=== PATIENT | female | born 1990 | race African-American/Black ===

== ENCOUNTER 2023-03-22 18:05 | Inpatient (IN) | payer OTHER ==
[2023-03-22 18:44] VITALS: BMI 25.8
[2023-03-22 18:54] LABS: BASO % 0.3 % (0-2.0); EOS % 0.3 % (0-4.5); HEMATOCRIT 35.7 % (32.4-45.2); LYMPH % 19.3 % (8-40); MCH 30.6 pg (25.7-33.7); MCHC 33.7 g/dl (32.0-36.0); MEAN CELL VOLUME 90.7 fl (80-96); MEAN PLT VOLUME 6.8 fl (7.5-11.1); MONO % 10.7 % (3.8-10.2); NEUT % 69.4 % (42.8-82.8); PLATELET COUNT 344 10^3/uL (134-434); RBC 3.94 M/mm3 (3.60-5.2); RDW 13.7 % (11.6-15.6); WHITE BLOOD COUNT 8.4 K/mm3 (4.0-10.0)
[2023-03-22 19:02] LABS: INR 0.97 (0.83-1.09); PROTHROMBIN TIME (PATIENT) 11.2 SEC (9.7-13.0)
[2023-03-22 19:05] LABS: ACTIVATED PTT 27.5 SECONDS (25.2-36.5)
[2023-03-22 19:23] LABS: POTASSIUM 3.7 mmol/L (3.5-5.1)
[2023-03-22 19:24] LABS: CALCIUM 8.6 mg/dL (8.5-10.1)
[2023-03-22 19:25] LABS: BLOOD UREA NITROGEN 7.3 mg/dL (7-18)
[2023-03-22 19:28] LABS: CREATININE 0.4 mg/dL (0.55-1.3)
[2023-03-22] MEDS ORDERED: DINOPROSTONE 10 MG VAGINAL SUPPOSITORY VG ONE (21:00)
[2023-03-22] MEDS ORDERED: ZOLPIDEM TARTRATE 5 MG TABLET PO ONE (21:55)
[2023-03-23] MEDS: ELECTROLYTE-148 SOLN 1,000 ML IV SCH ×4 (05:00→22:05)
[2023-03-23] MEDS ORDERED: AMPICILLIN SODIUM 2 GM VIAL ONE (05:50)
[2023-03-23] MEDS ORDERED: AMPICILLIN - 2 GM in SODIUM CHLORIDE 100 ML IVPB ONE (06:00)
[2023-03-23] MEDS ORDERED: AMPICILLIN SODIUM 1 GM VIAL ONE ×4 (09:25→21:58)
[2023-03-23] MEDS: AMPICILLIN - 1 GM in SODIUM CHLORIDE 100 ML IVPB SCH ×4 (09:30→22:04)
[2023-03-23] MEDS ORDERED: OXYTOCIN 30 UNITS in 0.9% NS 30 UNIT/500 ML INFUS.BAG IVPB ONE (11:03)
[2023-03-23] MEDS: OXYTOCIN 30 UNITS in 0.9% NS 30 UNIT/500 ML INFUS.BAG IVPB SCH (11:09)
[2023-03-23] MEDS ORDERED: FENTANYL/BUPIVACAINE/NS/PF - PCEA - 50 ML DISP.SYRIN EP ONE ×2 (19:05→23:24)
[2023-03-23] MEDS ORDERED: NALOXONE HCL 0.4 MG/ML VIAL IVPUSH PRN (19:33)
[2023-03-23] MEDS ORDERED: LIDO 2%/EPI 1:200000 PRESRVFRE (20 ML SDVIAL) ONE (19:45)
[2023-03-23] MEDS ORDERED: FENTANYL CITRATE/PF 50 MCG/ML VIAL ONE (19:45)
[2023-03-23] MEDS ORDERED: BUPIVACAINE HCL/PF 0.25% (2.5MG/ML) 10 ML VIAL ONE (19:45)
[2023-03-23] MEDS: FENTANYL/BUPIVACAINE/NS/PF - PCEA - 50 ML DISP.SYRIN EP SCH (20:00)
[2023-03-24] MEDS ORDERED: LIDOCAINE HCL 1% PRESERVATIVE FREE - 30ML VIAL ONE (02:08)
[2023-03-24] MEDS ORDERED: AMPICILLIN SODIUM 1 GM VIAL ONE (02:08)
[2023-03-24] MEDS ORDERED: OXYTOCIN 20 UNITS in 0.9% NS 20 UNIT/1,000 ML INFUS.BAG IV ONE ×3 (02:08→10:30)
[2023-03-24] MEDS: AMPICILLIN - 1 GM in SODIUM CHLORIDE 100 ML IVPB SCH ×2 (02:15→06:56)
[2023-03-24] MEDS ORDERED: oxyCODONE HCL 5 MG TABLET PO PRN (06:12)
[2023-03-24] MEDS ORDERED: WITCH HAZEL 50% (TUCKS) 40 PAD/JAR PAD TP PRN (06:12)
[2023-03-24] MEDS ORDERED: ACETAMINOPHEN 325 MG TABLET (FP) PO PRN (06:12)
[2023-03-24] MEDS ORDERED: BENZOCAINE 28 GM HEMORRHOIDAL OINTMENT TP PRN (06:12)
[2023-03-24] MEDS ORDERED: BISACODYL 10 MG SUPP.RECT RC PRN (06:12)
[2023-03-24] MEDS ORDERED: BENZOCAINE 20% 57 GM BOTTLE TP PRN (06:12)
[2023-03-24] MEDS ORDERED: METHYLERGONOVINE MALEATE 0.2 MG/1 ML AMP IM PRN (06:12)
[2023-03-24] MEDS ORDERED: OXYTOCIN 20 UNITS in 0.9% NS 20 UNIT/1,000 ML INFUS.BAG IV SCH (06:15)
[2023-03-24] MEDS ORDERED: ceFAZolin SODIUM 1 GM VIAL ONE (09:37)
[2023-03-24 10:30] LABS: HEMATOCRIT 33.5 % (32.4-45.2); MCH 29.9 pg (25.7-33.7); MCHC 32.8 g/dl (32.0-36.0); MEAN CELL VOLUME 91.1 fl (80-96); MEAN PLT VOLUME 7.1 fl (7.5-11.1); PLATELET COUNT 302 10^3/uL (134-434); RBC 3.68 M/mm3 (3.60-5.2); RDW 13.5 % (11.6-15.6)
[2023-03-24] MEDS ORDERED: CEFAZOLIN SODIUM 2 GM in SODIUM CHLORIDE 100 ML IVPB ONE (10:30)
[2023-03-24 11:25] LABS: ANISOCYTOSIS 1+
[2023-03-24] MEDS: IBUPROFEN 600 MG TABLET (FP) PO PRN ×3 (11:35→22:37)
[2023-03-24] MEDS: CEFAZOLIN SODIUM 2 GM in DEXTROSE 5%-WATER 100 ML IVPB SCH (17:55)
[2023-03-24] MEDS: OXYTOCIN 30 UNITS in 0.9% NS 30 UNIT/500 ML INFUS.BAG IVPB SCH (20:00)
[2023-03-24] MEDS: FENTANYL/BUPIVACAINE/NS/PF - PCEA - 50 ML DISP.SYRIN EP SCH (20:02)
[2023-03-25] MEDS: CEFAZOLIN SODIUM 2 GM in DEXTROSE 5%-WATER 100 ML IVPB SCH ×2 (01:57→09:32)
[2023-03-25 08:00] LABS: BASO % 0.2 % (0-2.0); EOS % 0.5 % (0-4.5); HEMATOCRIT 29.7 % (32.4-45.2); HEMOGLOBIN 9.8 GM/dL (10.7-15.3); LYMPH % 11.9 % (8-40); MCH 30.3 pg (25.7-33.7); MEAN CELL VOLUME 91.8 fl (80-96); MONO % 8.7 % (3.8-10.2); NEUT % 78.7 % (42.8-82.8); PLATELET COUNT 282 10^3/uL (134-434); RBC 3.24 M/mm3 (3.60-5.2); RDW 13.9 % (11.6-15.6); WHITE BLOOD COUNT 16.2 K/mm3 (4.0-10.0)
[2023-03-25] MEDS: IBUPROFEN 600 MG TABLET (FP) PO PRN (09:32)
[2023-03-25] MEDS ORDERED: SENNOSIDES/DOCUSATE COMBO (SENNA PLUS) TABLET (UD) PO PRN (22:00)
[2023-03-26] MEDS: IBUPROFEN 600 MG TABLET (FP) PO PRN ×2 (06:17→14:13)
[2023-03-26 10:13] VITALS: BP 125/81; PULSE 94; RESP 16; TEMP 98.7
== END 2023-03-26 16:40 | disposition home or self-care (01) | DRG 560 ==
LOC: JLDR 18:05 → J3W 03-24 11:05
PROVIDERS: ADMIT Specialist; ATTEND Specialist
PROC: 3E0P7VZ Introduction of Hormone into Female Reproductive, Via Natural or Artificial Opening (ICD-10-PCS; 2023-03-22)
PROC: 10907ZC Drainage of Amniotic Fluid, Therapeutic from Products of Conception, Via Natural or Artificial Opening (ICD-10-PCS; 2023-03-23)
PROC: 3E033VJ Introduction of Other Hormone into Peripheral Vein, Percutaneous Approach (ICD-10-PCS; 2023-03-23)
PROC: 10D07Z6 Extraction of Products of Conception, Vacuum, Via Natural or Artificial Opening (ICD-10-PCS; principal; 2023-03-24)
PROC: 0W8NXZZ Division of Female Perineum, External Approach (ICD-10-PCS; 2023-03-24)
DX: O26.613 Liver and biliary tract disorders in pregnancy, third trimester (principal); K83.1 Obstruction of bile duct; O14.04 Mild to moderate pre-eclampsia, complicating childbirth; O66.0 Obstructed labor due to shoulder dystocia; Z3A.38 38 weeks gestation of pregnancy; Z37.0 Single live birth
CPT/HCPCS: 36415; 80048; 85025; 85610; 85730; 86780; 86850; 86900; 86901